=== PATIENT | female | born 1940 | race Caucasian/White ===

== ENCOUNTER → 2017-02-04 | Outpatient (CLI) | payer OTHER, MEDICARE ==
[~2017-02-04] MED LIST: ACET1TAB84 PO; ATV5 PO; FURO-85 PO; METO-551 PO; METO50TA16 PO; ROSU20TA PO; TRAM-10 PO; WARF2.5T8 PO; WARF5TAB90 PO
[2017-02-04 17:32] LABS: BASO % 0.8 %; BASO ABS # 0.05 K/uL (0-0.2); COMPLETE YES; EOS % 2.2 %; HEMATOCRIT 41.7 % (37-47); IG% 0.2 %; LYMPH % 23.1 %; LYMPH ABS # 1.47 K/uL (1.2-3.4); MEAN CELL VOLUME 89.9 fL (80-100); MEAN CORPUSCULAR HEMOGLOBIN 29.5 pg (25-34); MEAN CORPUSCULAR HGB CONC 32.9 g/dl (32-36); MEAN PLATELET VOLUME 9.9 fL (7.4-10.4); MONO % 5.3 %; NEUT % 68.4 %; PLATELET COUNT 184 K/uL (130-400); RED BLOOD COUNT 4.64 M/uL (4.2-5.4); WHITE BLOOD COUNT 6.37 K/uL (4.8-10.8)
[2017-02-04 17:42] LABS: ALB/GLOB RATIO 1.1 (0.9-2); ALT/SGPT 18 U/L (12-78); AST/SGOT 6 U/L (15-37); BLOOD UREA NITROGEN 16 mg/dl (7-18); BUN/CREATININE RATIO 17.7 (10-20); CALCIUM 8.5 mg/dl (8.5-10.1); CARBON DIOXIDE 31 mmol/L (21-32); CHLORIDE 105 mmol/L (98-107); CREATININE 0.91 mg/dl (0.60-1.20); GLUCOSE 81 mg/dl (70-99); SODIUM 142 mmol/L (136-145); TRIGLYCERIDES 96 mg/dl (0-150); VERY LOW DENSITY LIPOPROT CALC 19 mg/dl
[2017-02-04 17:50] LABS: ALKALINE PHOSPHATASE 62 U/L (45-117); CHOLESTEROL 157 mg/dl (0-200); CHOLESTEROL/HDL RATIO 2.8; HDL CHOLESTEROL 56 mg/dl; LDL CHOLESTEROL CALCULATED 82 mg/dl
== END | disposition home or self-care (01) ==
LOC: C.LABBFT 12:16
PROVIDERS: ATTEND Internal Medicine
DX: Z00.00 Encounter for general adult medical examination without abnormal findings (principal); I48.91 Unspecified atrial fibrillation; I10 Essential (primary) hypertension; E78.5 Hyperlipidemia, unspecified; M25.519 Pain in unspecified shoulder

== ENCOUNTER 2021-11-28 13:03 | Inpatient (IN) ==
[2021-11-28] MEDS ORDERED: ALBUT/IPRATROP 3MG/0.5MG NEB 3 ML VIAL NEB STA (13:24)
--- NOTE | 2021-11-28 13:43 | XRay Report ---
XR chest 1V portable CLINICAL HISTORY: hypoxia. Nonsmoker COMPARISON STUDY: 09/29/2011 TECHNIQUE: 1 view of the chest FINDINGS: Single frontal view of the chest demonstrates the heart to be moderately enlarged compared to previou s examination, there has been interval development of a right-sided pleural effusion and patchy alveo lar opacity at the right lung base. Findings are characteristic of early pneumonia versus atelectasis . PA and lateral radiographs would be helpful for further evaluation. The remainder of the lungs are clear. There is no evidence for left pleural effusion. There is no evidence for vascular congestion. There is no acute osseous pathology. IMPRESSION: Small right pleural effusion and alveolar opacity the right lung base representing either early pneumonia versus atelectasis. Follow-up is recommended. ACT 112: Negative or not required by law. Electronically signed by: Rizwan Rivera M.D. 11/28/2021 1:41 PM
[2021-11-28 13:54] LABS: Basophils # (auto) 0.06 K/uL (0-0.2); Basophils % (auto) 0.9 %; Eosinophils # (auto) 0.01 K/uL (0-0.5); Eosinophils % (auto) 0.2 %; Hematocrit (blood only) 49.7 % (37-47); Hemoglobin 16.3 g/dL (12.0-16.0); Immature Granulocytes # (auto) 0.01 K/uL (0.00-0.02); Immature Granulocytes % (auto) 0.2 %; Lymphocytes # (auto) 1.37 K/uL (1.2-3.4); Lymphocytes % (auto) 21.1 %; Mean Corpuscular Hemoglobin 30.5 pg (25-34); Mean Corpuscular Hgb Conc 32.8 g/dL (32-36); Mean Corpuscular Volume 92.9 fL (80-100); Mean Platelet Volume 9.9 fL (7.4-10.4); Monocytes # (auto) 1.06 K/uL (0.11-0.59); Monocytes % (auto) 16.3 %; Neutrophils # (auto) 3.99 K/uL (1.4-6.5); Neutrophils % (auto) 61.3 %; Platelet Count 189 K/uL (130-400); RDW Coefficient of Variation 14.6 % (11.5-14.5); RDW Standard Deviation 49.2 fL (36.4-46.3); Red Blood Count 5.35 M/uL (4.2-5.4)
[2021-11-28 14:12] LABS: INR 5.2 (0.9-1.1); Prothrombin Time 46.5 Seconds (9.0-12.0)
[2021-11-28] MEDS ORDERED: methylPREDNISolone 125 MG/2 ML VIAL IV STA (14:12)
[2021-11-28 14:59] LABS: Troponin I 0.07 ng/ml (0-0.04)
--- NOTE | 2021-11-28 15:02 | Emergency Department Note ---
ED Visit Note This patient was seen in concert with Dr. Abbott and we discussed and agreed upon the history, physical, assessment and plan. See attending's note for details. Resident Activity Tracking Resident Involvement: Resident Care Provided Care Provided: Adult ED
[2021-11-28 15:04] LABS: Influenza A virus by PCR Negative (Neg); Influenza B virus by PCR Negative (Neg); RSV by PCR Negative (Neg); SARS CoV2 RNA(COVID-19) InHosp NEGATIVE (Negative)
[2021-11-28] MEDS ORDERED: cefTRIAXone SODIUM 1,000 MG/50 ML BAG IV STA (15:06)
[2021-11-28] MEDS ORDERED: AZITHROMYCIN 250 MG TAB PO ONE (15:06)
--- NOTE | 2021-11-28 15:11 | Emergency Department Note ---
Impression & Plan Pneumonia, Hypoxia, Perioral cyanosis, Confusion, Elevated hemoglobin, Elevated hematocrit ED Provider Note NAME: LUCY CRUZ AGE: 81 SEX: F ARRIVES VIA: Ambulance INFORMANT: Patient, EMS, son ED PROVIDER(S): Samuel Abbott MD CHIEF COMPLAINT: Confusion PLAN: Disposition: Admit MEDICAL DECISION MAKING: The patient is a pleasant 81 yo F with a PMHx of afib on anticoagulation with warfarin and COPD who was brought in to the emergency department for altered mental status. She does not have any history of underlying dementia however earlier today her neighbors found her outside in the yard, wandering around aimlessly muttering to herself. The neighbor contacted her son Edouard, who called an EMS. History per Edouard: mother lives alone in private residence at baseline his mother is able to perform all ADLs and IADLS. However one week ago he spoke with her over the phone and she told him she saw his father lying in bed next to her (however Edouard states her is ). Edouard attributed this to her oxygen level being low this assumption was based on her underlying diagnosis of COPD. Later, when he went to visit her, he noticed her lips and fingertips appeared slightly blue. He told her to get her inhalers out and she expressed confusion/difficulty using them. Edouard wonders if she needs nighttime oxygen. Edouard lives in [place], [place] if his mother needs supervision/care, he would prefer she come live with him and his rather than be placed in a facility. Patient is a poor historian and when she is asked why she was outside in her nightgown she reports she was going across the street to use the phone as she cannot find hers which she attributes to the phone being under her bed due to the fact that kids were over at her house last night and put it there and she is unable to get it herself. However she is unable to say which "kids" and she then begins to describe all her children saying "4 are in the ground". On arrival the patient is in no acute distress, afebrile with stable vital signs. The patient's O2 saturation was initially 98% on room air though there was question of hypoxia to the 70s which is unclear whether or not it was a true waveform. Patient was treated with DuoNeb as she had scattered wheezes and poor air movement. Subsequently the patient's O2 saturation was in the 90s again. However, despite that patient's improved O2 saturation her perioral cyanosis persisted. EKG without overt acute ischemia. Chest x-ray demonstrates small right pleural effusion and right basilar opacity that is suspicious for pneumonia. WBC within normal limits. Platelets within normal limits. The patient's H/H is 16.3/49.7 which is increased from her baseline of 14/44. Suspect reactive related to COPD/hypoxemia since august vs hemoconcentration and could explain sean-oral cyanosis. INR supratherapeutic at 5.2 however no evidence of bleeding. Chemistry without metabolic acidosis. BUN is 26. BUN/creatinine> 20. Troponin 0.07 without prior values for comparison. BNP 1700, nonspecific, about prior values for comparison. COVID-19 PCR negative. Influenza PCR also negative. Given the patient's hypoxia which was severe by report prior to arrival and evidence of pneumonia on chest x-ray patient was ordered for antibiotics for CAP coverage. CT of the head was ordered given change in mental status from baseline and was negative for acute process. Atrophy and small vessel disease is noted. Methemoglobin ordered given perioral cyanosis (though there is no report of the patient taking any inciting medications). This was not elevated. Resident, Dr. Montreroso, discussed case with JOSELITO Hauser PAC, with Dr. Vazquez [facility] hospitalist, who will evaluate the patient for admission. This patient was managed with the assistance of resident, Dr. Monterroso, I discussed the case with the resident, examined the patient, and confirm the findings and plan as documented in this note. Triage Nursing notes reviewed and agree them. Prior medical records reviewed Vital Signs: reviewed and remarkable for hypoxia. Differential diagnosis: Infection, dehydration, metabolic abnormality, hypo/hyperglycemia, electrolyte disturbance, anemia, hypoxia, cardiac sources, intracerebral event, toxicologic, neurologic, as well as other pathologies. ER treatment provided: See below. Diagnostics interpreted by me: ECG: Atrial fibrillation with RVR, 107 bpm, no ectopy, no overt ST elevation or depression, QTC 456, QRS 90. Cardiac Monitoring: An order for continuous cardiac monitoring was placed and demonstrated atrial fibrillation with RVR, 107 bpm, no ectopy. Laboratory studies: See below Imaging studies: See below Consultation(s): JOSELITO Hauser PAC, with Dr. Vazquez [facility] hospitalist HPI: The patient is a pleasant 81 yo F with a PMHx of afib on anticoagulation with warfarin and COPD who was brought in to the emergency department for altered mental status. She does not have any history of underlying dementia however earlier today her neighbors found her outside in the yard, wandering around aimlessly muttering to herself. The neighbor contacted her son Edouard, who called an EMS. History per Edouard: mother lives alone in private residence at baseline his mother is able to perform all ADLs and IADLS. However one week ago he spoke with her over the phone and she told him she saw his father lying in bed next to her (however Edouard states her is ). Edouard attributed this to her oxygen level being low this assumption was based on her underlying diagnosis of COPD. Later, when he went to visit her, he noticed her lips and fingertips appeared slightly blue. He told her to get her inhalers out and she expressed confusion/difficulty using them. Edouard wonders if she needs nighttime oxygen. Edouard lives in [place], [place] if his mother needs supervision/care, he would prefer she come live with him and his rather than be placed in a facility. Patient is a poor historian and when she is asked why she was outside in her nightgown she reports she was going across the street to use the phone as she cannot find hers which she attributes to the phone being under her bed due to the fact that kids were over at her house last night and put it there and she is unable to get it herself. However she is unable to say which "kids" and she then begins to describe all her children saying "4 are in the ground". ROS: See above HPI for pertinent positives & negatives. A total of 10 systems reviewed and were otherwise negative. PAST MEDICAL HISTORY:See Below PAST SURGICAL HISTORY:See Below FAMILY HISTORY:See Below SOCIAL HISTORY:See Below HOME MEDICATIONS:See Below ALLERGIES:See Below VITALS:See Below PHYSICAL EXAMINATION: GENERAL: Awake, alert, fatigued-appearing, in no distress HENT: Normocephalic, atraumatic. Oropharynx dry mucous membranes with perioral cyanosis. EYES: Normal conjunctiva. Sclera non-icteric. NECK: Supple. No nuchal rigidity. FROM. No JVD. RESPIRATORY: Diminished with underlying wheeze and scattered wheezes with prolonged expiratory phase. CARDIAC: Tachycardic rate, irregular rhythm. Extremities warm and well perfused. Pulses equal. ABDOMEN: Soft, non-distended. No tenderness to palpation. No rebound or guarding. No masses. RECTAL: Deferred. MUSCULOSKELETAL: Chest examination reveals no tenderness. The back is symmet rical on inspection without obvious abnormality. There is no CVA tenderness to palpation. No joint edema. LOWER EXTREMITIES: Calves are equal size bilaterally and non-tender. No edema. No discoloration. NEURO: Alert to self and place but pleasantly confused to situation. No focal sensory or motor deficits noted. SKIN: No rash or jaundice noted. 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 Hyperlipidemia Hypertension Joint pain in the shoulder/clavicle region Osteoarthritis Permanent atrial fibrillation Surgical History History of cholecystectomy History of hysterectomy Family History Other Lung cancer Social History Smoking Status: Former smoker Tobacco Type: Cigarettes Age Started Using Tobacco: 14; Age Quit Using Tobacco: 59; packs per day: 1; Years Smoked: 45; Cigarettes Per Day: 20; Number of Years Since Quit: 20; Feels Safe at Home: Yes Allergies Allergies Allergy/AdvReac Type Severity Reaction Status Date / Time No Known Allergies Allergy Unknown Verified 11/28/21 16:26 Home Meds Home Medications Medication Instructions Recorded Confirmed furosemide 20 mg tablet 20 mg PO DAILY PRN 11/28/21 11/28/21 lorazepam 0.5 mg tablet 0.5 - 1 mg PO HS PRN 11/28/21 11/28/21 metoprolol tartrate 50 mg tablet 50 - 75 mg PO AMPM 11/28/21 11/28/21 rosuvastatin 20 mg tablet 10 mg PO [id number] 11/28/21 11/28/21 tiotropium 2.5 mcg-olodaterol 2.5 2 puff INHALATION QDL 11/28/21 11/28/21 mcg/actuation mist for inhalation (Stiolto Respimat) Previous Rx's Medication Instructions Recorded albuterol sulfate 90 mcg/actuation 2 puff INHALATION Q6H PRN #6.7 g 08/05/21 aerosol inhaler (ProAir HFA) warfarin 5 mg tablet 5 mg PO UD #100 tab 08/05/21 tramadol 50 mg tablet 50 mg PO QID PRN #120 tab 11/19/21 Results & Data (ED) Vital Signs Vital Signs - 24 hr 11/28/21 12:54 11/28/21 13:23 11/28/21 14:17 Temperature 36.8 C Temperature Source Oral Pulse Rate 72 104 H Pulse Rate from SpO2 Sensor 107 H Respiratory Rate 20 26 H Respiratory Effort / Characteristics Non-Labored Respiratory Depth Normal Respiratory Pattern Regular Blood Pressure 146/76 H Blood Pressure Mean 99 Pulse Oximetry 98 72 L 100 Oxygen Delivery Method Room Air Room Air Oxygen Flow Rate Sepsis Recent Fever Within 48 Hours No Sepsis New/Unexplained Change in Mental Status No Sepsis Action Taken by Nursing No Action Required 11/28/21 14:18 11/28/21 14:20 11/28/21 14:30 Temperature Temperature Source Pulse Rate 106 H 103 H 102 H Pulse Rate from SpO2 Sensor 102 H 104 H Respiratory Rate 25 H 17 17 Respiratory Effort / Characteristics Respiratory Depth Respiratory Pattern Blood Pressure 176/105 H Blood Pressure Mean 128 Pulse Oximetry 93 93 Oxygen Delivery Method Oxygen Flow Rate Sepsis Recent Fever Within 48 Hours Sepsis New/Unexplained Change in Mental Status Sepsis Action Taken by Nursing 11/28/21 14:40 11/28/21 14:50 11/28/21 15:00 Temperature Temperature Source Pulse Rate 101 H 102 H Pulse Rate from SpO2 Sensor 114 H Respiratory Rate 21 29 H Respiratory Effort / Characteristics Respiratory Depth Respiratory Pattern Blood Pressure Blood Pressure Mean Pulse Oximetry 94 87 L Oxygen Delivery Method Room Air Oxygen Flow Rate Sepsis Recent Fever Within 48 Hours Sepsis New/Unexplained Change in Mental Status Sepsis Action Taken by Nursing 11/28/21 15:15 Temperature Temperature Source Pulse Rate Pulse Rate from SpO2 Sensor Respiratory Rate Respiratory Effort / Characteristics Respiratory Depth Respiratory Pattern Blood Pressure Blood Pressure Mean Pulse Oximetry 96 Oxygen Delivery Method Nasal Cannula Oxygen Flow Rate 3 Sepsis Recent Fever Within 48 Hours Sepsis New/Unexplained Change in Mental Status Sepsis Action Taken by Nursing Laboratory Data Attestation: I reviewed the patient's lab results. Result diagrams: 11/28/21 13:43 11/28/21 13:43 Lab Results 11/28/21 11/28/21 11/28/21 Range/Units 13:43 13:43 13:43 WBC 6.50 (4.8-10.8) K/uL RBC 5.35 (4.2-5.4) M/uL Hgb 16.3 H (12.0-16.0) g/dL Hct 49.7 H (37-47) % MCV 92.9 (80-100) fL MCH 30.5 (25-34) pg MCHC 32.8 (32-36) g/dL RDW Std Deviation 49.2 H (36.4-46.3) fL RDW Coeff of Severino 14.6 H (11.5-14.5) % Plt Count 189 (130-400) K/uL MPV 9.9 (7.4-10.4) fL Immature Gran % (Auto) 0.2 % Neut % (Auto) 61.3 % Lymph % (Auto) 21.1 % [place] % (Auto) 16.3 % Eos % (Auto) 0.2 % Baso % (Auto) 0.9 % Neut # (Auto) 3.99 (1.4-6.5) K/uL Lymph # (Auto) 1.37 (1.2-3.4) K/uL [place] # (Auto) 1.06 H (0.11-0.59) K/uL Eos # (Auto) 0.01 (0-0.5) K/uL Baso # (Auto) 0.06 (0-0.2) K/uL Immature Gran # (Auto) 0.01 (0.00-0.02) K/uL PT 46.5 H (9.0-12.0) Seconds INR 5.2 H (0.9-1.1) Methemoglobin (0.0-1.5) % Sodium 137 (136-145) mmol/L Potassium 3.7 (3.5-5.1) mmol/L Chloride 98 (98-107) mmol/L Carbon Dioxide 28 (21-32) mmol/L Anion Gap 11 (3-11) BUN 26 H (6-23) mg/dl Creatinine 1.12 (0.6-1.2) mg/dl Est Cr Clr Drug Dosing Not Reportable Est GFR ( Amer) 53.0 ml/min Est GFR (Non-Af Amer) 45.7 ml/min BUN/Creatinine Ratio 23.2 H (10-20) Glucose 101 H (70-99) mg/dl Calcium 9.2 (8.5-10.1) mg/dl Total Bilirubin 2.9 H (0.2-1.0) mg/dl AST 223 H (13-39) U/L ALT 211 H (7-52) U/L Alkaline Phosphatase 102 (34-104) U/L Troponin I 0.07 H* (0-0.04) ng/ml B-Natriuretic Peptide (0-100) pg/ml Total Protein 6.5 (6.0-8.3) gm/dl Albumin 4.0 (3.4-5.0) gm/dl Globulin 2.5 (2.5-4.0) gm/dl Albumin/Globulin Ratio 1.6 (0.9-2) SARS-CoV-2 (PCR) (Negative) Influenza Type A (PCR) (Neg) Influenza Type B (PCR) (Neg) RSV (RT-PCR) (Neg) 11/28/21 11/28/21 11/28/21 Range/Units 14:04 14:14 15:27 WBC (4.8-10.8) K/uL RBC (4.2-5.4) M/uL Hgb (12.0-16.0) g/dL Hct (37-47) % MCV (80-100) fL MCH (25-34) pg MCHC (32-36) g/dL RDW Std Deviation (36.4-46.3) fL RDW Coeff of Severino (11.5-14.5) % Plt Count (130-400) K/uL MPV (7.4-10.4) fL Immature Gran % (Auto) % Neut % (Auto) % Lymph % (Auto) % [place] % (Auto) % Eos % (Auto) % Baso % (Auto) % Neut # (Auto) (1.4-6.5) K/uL Lymph # (Auto) (1.2-3.4) K/uL [place] # (Auto) (0.11-0.59) K/uL Eos # (Auto) (0-0.5) K/uL Baso # (Auto) (0-0.2) K/uL Immature Gran # (Auto) (0.00-0.02) K/uL PT (9.0-12.0) Seconds INR (0.9-1.1) Methemoglobin 1.4 (0.0-1.5) % Sodium (136-145) mmol/L Potassium (3.5-5.1) mmol/L Chloride (98-107) mmol/L Carbon Dioxide (21-32) mmol/L Anion Gap (3-11) BUN (6-23) mg/dl Creatinine (0.6-1.2) mg/dl Est Cr Clr Drug Dosing Est GFR ( Amer) ml/min Est GFR (Non-Af Amer) ml/min BUN/Creatinine Ratio (10-20) Glucose (70-99) mg/dl Calcium (8.5-10.1) mg/dl Total Bilirubin (0.2-1.0) mg/dl AST (13-39) U/L ALT (7-52) U/L Alkaline Phosphatase (34-104) U/L Troponin I (0-0.04) ng/ml B-Natriuretic Peptide 1726 H (0-100) pg/ml Total Protein (6.0-8.3) gm/dl Albumin (3.4-5.0) gm/dl Globulin (2.5-4.0) gm/dl Albumin/Globulin Ratio (0.9-2) SARS-CoV-2 (PCR) NEGATIVE (Negative) Influenza Type A (PCR) Negative (Neg) Influenza Type B (PCR) Negative (Neg) RSV (RT-PCR) Negative (Neg) Administered Medications Albuterol (Albut/Ipratrop 3mg/0.5mg Neb 3 Ml Vial) 3 ml NEB Q4R TEDDY; Protocol Stop: 12/28/21 19:33 Last Admin: 11/28/21 20:55 Dose: 3 ml Documented by: [id number] Diltiazem HCl (Diltiazem Hcl 120 Mg Capcr) 120 mg PO QAM [facility] Stop: 12/28/21 19:33 Last Admin: 11/28/21 22:33 Dose: 120 mg Documented by: [id number] Methylprednisolone 60 mg/ (Syringe) 0.96 mls @ 1.5 mls/min IV Q12H [facility] Stop: 12/29/21 00:00 Last Admin: 11/28/21 23:04 Dose: 1.5 mls/min Documented by: [id number] Lorazepam (Lorazepam 0.5 Mg Tab) 0.25 - 0.5 mg PO HS PRN PRN Reason: anxiety Stop: 12/28/21 19:33 Last Admin: 11/28/21 20:57 Dose: 0.5 mg Documented by: [id number] Metoprolol Tartrate (Metoprolol Tartrate 50 Mg Tab) 50 mg PO HS TEDDY Stop: 12/28/21 20:59 Last Admin: 11/28/21 20:57 Dose: 50 mg Documented by: [id number] Tramadol HCl (Tramadol Hcl 50 Mg Tablet) 50 mg PO QID PRN PRN Reason: pain Stop: 12/28/21 19:33 Last Admin: 11/28/21 20:56 Dose: 50 mg Documented by: [id number] Discontinued Medications Albuterol (Albut/Ipratrop 3mg/0.5mg Neb 3 Ml Vial) 3 ml NEB NOW STA; Protocol Stop: 11/28/21 13:25 Last Admin: 11/28/21 14:19 Dose: 3 ml Documented by: [id number] Azithromycin (Azithromycin 250 Mg Tab) 500 mg PO NOW ONE Stop: 11/28/21 15:07 Last Admin: 11/28/21 15:53 Dose: 500 mg Documented by: [id number] Furosemide (Furosemide 40 Mg/4 Ml Vial) 60 mg IV NOW ONE Stop: 11/28/21 15:33 Last Admin: 11/28/21 15:54 Dose: 60 mg Documented by: [id number] Ceftriaxone Sodium (Rocephin) 1,000 mg in 50 mls @ 100 mls/hr IV NOW STA Stop: 11/28/21 15:35 Last Infusion: 11/28/21 17:03 Dose: 0 mls/hr Documented by: [id number] Admin: 11/28/21 15:54 Dose: 100 mls/hr Documented by: [id number] Methylprednisolone (Methylprednisolone 125 Mg/2 Ml Vial) 125 mg IV NOW STA Stop: 11/28/21 14:13 Last Admin: 11/28/21 14:21 Dose: 125 mg Documented by: [id number] Miscellaneous (Patient's Height And/Or Weight Needed) 1 ea N/A Q2H TEDDY Stop: 12/28/21 19:59 Last Admin: 11/28/21 20:57 Dose: 1 ea Documented by: [id number] Imaging Data Radiologist's Impression: Chest X-Ray 11/28/21 13:24 XR chest 1V portable CLINICAL HISTORY: hypoxia. Nonsmoker COMPARISON STUDY: 09/29/2011 TECHNIQUE: 1 view of the chest FINDINGS: Single frontal view of the chest demonstrates the heart to be moderately enlarged compared to previous examination, there has been interval development of a right-sided pleural effusion and patchy alveolar opacity at the right lung base. Findings are characteristic of early pneumonia versus atelectasis. PA and lateral radiographs would be helpful for further evaluation. The remainder of the lungs are clear. There is no evidence for left pleural effusion. There is no evidence for vascular congestion. There is no acute osseous pathology. IMPRESSION: Small right pleural effusion and alveolar opacity the right lung base representing either early pneumonia versus atelectasis. Follow-up is recommended. ACT 112: Negative or not required by law. Electronically signed by: Rizwan Rivera M.D. 11/28/2021 1:[address] 11/28/21 14:33 CT head/brain wo con CLINICAL HISTORY: Altered mental status COMPARISON STUDY: No previous studies for comparison. CT DOSE: 1547.15 mGy.cm TECHNIQUE: Standard CT of the Brain was performed without IV contrast. A dose lowering technique was utilized adhering to the principles of ALARA. FINDINGS: Extraaxial space: There is no evidence for subdural hematoma. There are no e xtra-axial fluid collections. Ventricles and cisterns: The ventricles are mildly dilated bilaterally. There is no evidence for midline shift or mass effect. Parenchyma: There is no subarachnoid or intraparenchymal hemorrhage. There is no evidence for an acute infarct or cerebral edema. There is mild cerebral cortical atrophy and decreased attenuation in the periventricular white matter representing remote small vessel disease. There are no gross mass lesions. Osseous structures: There is no evidence for an acute fracture. The visualized paranasal sinuses are clear. The mastoid air cells are clear bilaterally. Soft tissues: There is no evidence for focal soft tissue swelling. IMPRESSION: No acute intracerebral pathology. Mild cerebral cortical atrophy and remote small vessel disease. ACT 112: Negative or not required by law. Electronically signed by: Rizwan Rivera M.D. 11/28/2021 5:23 PM Discharge Plan Visit Data Chief Complaint: Illness Stated Complaint: ILLNESS ED Provider: Samuel Abbott ED Midlevel Provider: Alta Monterroso Discharge Problem: Pneumonia, Hypoxia, Perioral cyanosis, Confusion, Elevated hemoglobin, Elevated hematocrit Patient Disposition: Admitted As Inpatient Discharge Instructions Interventions: ED Discharge Assessment Last Done: 11/28/21 19:34 Discharge Problem: Pneumonia Qualifiers: Pneumonia type: due to unspecified organism Laterality: right Lung location: lower lobe of lung Qualified Code(s): J18.9 - Pneumonia, unspecified organism
[2021-11-28] MEDS ORDERED: FUROSEMIDE 40 MG/4 ML VIAL IV ONE (15:32)
[2021-11-28 15:58] LABS: Alanine Aminotransferase 211 U/L (7-52); Albumin Globulin Ratio 1.6 (0.9-2); Alkaline Phosphatase 102 U/L (34-104); Anion Gap 11 (3-11); Aspartate Aminotransferase 223 U/L (13-39); BUN Creatinine Ratio 23.2 (10-20); Bilirubin,Total 2.9 mg/dl (0.2-1.0); Blood Urea Nitrogen 26 mg/dl (6-23); Calcium 9.2 mg/dl (8.5-10.1); Carbon Dioxide 28 mmol/L (21-32); Chloride 98 mmol/L (98-107); Est GFR (Non-African American) 45.7 ml/min; Globulin 2.5 gm/dl (2.5-4.0); Glucose 101 mg/dl (70-99); Potassium 3.7 mmol/L (3.5-5.1); Sodium 137 mmol/L (136-145); Total Protein 6.5 gm/dl (6.0-8.3)
--- NOTE | 2021-11-28 16:17 | History & Physical Report ---
Date of Service November 28, 2021 Assessment & Plan (1) Altered mental status: (2) Hypoxia: (3) COPD exacerbation: Plan: Mrs. Castro is an 81 year old female with a history of Permanent Atrial Fibrillation (currently with elevated V rate), COPD/Emphysema, Hypertension, Hyperlipidemia, Anxiety, Osteoarthritis, and CKD who presented acutely to [facility] ER today via ambulance with altered mental status. Apparently, she was found earlier today walking around in the yard mumbling to herself. She states that she was looking for her phone that her kicked under their bed. She went to her neighbor's house to borrow her phone -- and her neighbor real ized that she was confused and not her usual self. Neighbor contacted her son Edouard who lives in [place]. He apparently called 911 and the ambulance came for her. Patient does not have any history of underlying dementia, and her son confirms that she lives independently and is able to do all of her usual activities of daily living and IADLs when she is at baseline without difficulty. However, 1 week ago Edouard spoke to his mother over the phone and she told him she saw his "father lying in bed next to me" (her is ). her son the admit that perhaps her oxygen levels were low because of her underlying diagnosis of COPD/emphysema. Edouard came over to visit her and noticed that her finger tips and lips appear to be slightly blue. He told her to get out her inhalers but s he seemed confused when it came to using them. Patient does feel better since she arrived to the emergency room. She received a dose of Rocephin, azithromycin, steroids, and got a nebulizer treatment. Patient does admit to some mild exertional dyspnea recently (over the past 4 or 5 days she estimats) but has not had any significant cough or sputum production. She denies any fevers, chills, headache, stiff neck, recent diarrhea, nausea, vomiting, or any chest discomfort. She has not had any orthopnea or PND. She does not weigh herself routinely -- so she is uncertain if she has had any r ecent weight changes. She does admit to leg edema from time to time, and she is edematous now. Patient specifically denies any exertional chest pain, heaviness, tightness, pressure, or discomfort. She has not had any neck, jaw, back, or arm pain. She denies any symptoms attributable to her atrial fibrillation despite elevated heart rate. In the emergency room she is noted to be in atrial fibrillation with heart rates in the 100-120 bpm range, she was hypoxic with oxygen saturations in the 70s and 80s prior to getting supplemental oxygen, tachypneic, and she has an abnormal chest x-ray showing a small pleural effusion, opacification in the right base, and marked cardiomegaly. Her initial troponin I level is 0.07 ng/mL, and her proBNP is elevated at 1726 pg/ml. Additionally, her TSH is elevated at 5.25uIU/mL. Her EKG shows atrial fibrillation with a moderately elevated ventricular response rate, right axis deviation, and an RSR' complex in V1 without widening of the QRS complex. No acute ST or T-wave abnormalities. Question if she may have a component of CHF based on cardiomegaly and A-Fib with RVR, elevated pro-BNP, hepatic congestion contributing to supratherapeutic INR. Recommend the followin. Admit to a monitored bed. 2. Continuous pulse oximetry. 3. Continue supplemental oxygen to maintain O2 saturation above 92%. 4. Continue IV Rocephin and IV Azithromycin for suspected bronchitis / possible pneumonia. 5. IV Lasix 60 mg x 1 dose in the ER. 6. IV Methylprednisolone every 12 hours. 7. Continue usual home inhalers. 8. DuoNeb nebulizers. 9. Incentive spirometry. 10. CT scan the chest, no contrast. (4) Permanent atrial fibrillation with RVR: Plan: Permanent A-Fib for years, currently with RVR. This may be due to her acute illness. 1. Hold Coumadin as her INR is supratherapeutic. Resume Coumadin when INR drops below 2.5. 2. Continue Lopressor 50 mg every morning, 75 mg each night. 3. With her elevated heart rate and hypertension, recommend adding oral Diltiazem CD 120 mg daily. 4. Monitor daily INRs. (5) Supratherapeutic INR: Plan: -- Currently on hold due to being supratherapeutic. -- Manage as outlined above. (6) Elevated troponin I level: Plan: Initial Troponin I is 0.07 ng/ml. She does not describe any anginal symptoms. Likely myocardial O2 supply/demand mismatch related to acute illness, hypoxia, tachycardia, etc.. -- Trend Troponin I levels. -- Check Echocardiogram. (7) Hypertension: Plan: BP is elevated in the ER. -- Add oral Diltiazem CD 120 mg daily for both hypertension and elevated ventricular response rate. -- Continue Lopressor 50 mg every morning, 75 mg each night. (8) Hyperlipidemia: Plan: - Continue Crestor 10 mg 3 times a week. (9) Elevated TSH: Plan: TSH on admission is 5.25 uIU/ml. -- She likely benefit by starting on thyroid supplementation. History of Present Illness Chief Complaint: -- Altered Mental Status. -- Hypoxia. -- Cardiomegaly. -- Bronchitis. Primary Care Provider: Neeru Cummings MD Mrs. Castro is an 81 year old female with a history of Permanent Atrial Fibrillation (currently with elevated V rate), COPD/Emphysema, Hypertension, Hyperlipidemia, Anxiety, Osteoarthritis, and CKD who presented acutely to [facility] E R today via ambulance with altered mental status. Apparently, she was found earlier today walking around in the yard mumbling to herself. She states that she was looking for her phone that her kicked under their bed. She went to her neighbor's house to borrow her phone -- and her neighbor realized that she was confused and not her usual self. Neighbor contacted her son Edouard who lives in [place]. He apparently called 911 and the ambulance came for her. Patient does not have any history of underlying dementia, and her son confirms that she lives independently and is able to do all of her usual activities of daily living and IADLs when she is at baseline without difficulty. However, 1 week ago Edouard spoke to his mother over the phone and she told him she saw his " father lying in bed next to me" (her is ). her son the admit that perhaps her oxygen levels were low because of her underlying diagnosis of COPD/emphysema. Edouard came over to visit her and noticed that her finger tips and lips appear to be slightly blue. He told her to get out her inhalers but she seemed confused when it came to using them. Patient does feel better since she arrived to the emergency room. She received a dose of Rocephin, azithromycin, steroids, and got a nebulizer treatment. Patient does admit to some mild exertional dyspnea recently (over the past 4 or 5 days she estimats) but has not had any significant cough or sputum production. She denies any fevers, chills, headache, stiff neck, recent diarrhea, nausea, vomiting, or any chest discomfort. She has not had any orthopnea or PND. She does not weigh herself routinely -- so she is uncertain if she has had any recent weight changes. She does admit to leg edema from time to time, and she is edematous now. Patient specifically denies any exertional chest pain, heaviness, tightness, pressure, or discomfort. She has not had any neck, jaw, back, or arm pain. She denies any symptoms attributable to her atrial fibrillation despite elevated heart rate. Edouard lives in [place], [place] if his mother needs supervision/care, he would prefer she come live with him and his rather than be placed in a facility. Allergies Allergy/AdvReac Type Severity Reaction Status Date / Time No Known Allergies Allergy Unknown Verified 11/28/21 16:26 Home Medications Medication Instructions Recorded Confirmed Type albuterol sulfate 90 mcg/actuation 2 puff INHALATION Q6H PRN #6.7 g 08/05/21 Rx aerosol inhaler (ProAir HFA) warfarin 5 mg tablet 5 mg PO UD #100 tab 08/05/21 Rx tramadol 50 mg tablet 50 mg PO QID PRN #120 tab 11/19/21 Rx furosemide 20 mg tablet 20 mg PO DAILY PRN 11/28/21 11/28/21 History lorazepam 0.5 mg tablet 0.5 - 1 mg PO HS PRN 11/28/21 11/28/21 History metoprolol tartrate 50 mg tablet 50 - 75 mg PO AMPM 11/28/21 11/28/21 History rosuvastatin 20 mg tablet 10 mg PO 3XWK 11/28/21 11/28/21 History tiotropium 2.5 mcg-olodaterol 2.5 2 puff INHALATION QDL 11/28/21 11/28/21 History mcg/actuation mist for inhalation (Stiolto Respimat) Past Med/Surg History Medical History Anticoagulated on Coumadin Anxiety COPD (chronic obstructive pulmonary disease) with emphysema Herpes labialis Hyperlipidemia Hypertension Joint pain in the shoulder/clavicle region Osteoarthritis Permanent atrial fibrillation Surgical History History of cholecystectomy History of hysterectomy Family History Other Lung cancer Social History Smoking Status: Former smoker Tobacco Type: Cigarettes Age Started Using Tobacco: 14; Age Quit Using Tobacco: 59; packs per day: 1; Years Smoked: 45; Cigarettes Per Day: 20; Number of Years Since Quit: 20; Feels Safe at Home: Yes Review of Systems Review of Systems: 10 point review of systems was otherwise completed and is negative with the exception of what is mentioned in the HPI. Physical Exam Physical Exam: SpO2 87% to 92%, she desaturates when she talks. RR 24. GENERAL: Patient is sitting in her ER litter and does not appear acutely distressed. HEENT: Head is atraumatic, normocephalic. EOM's intact. Sclerae anicteric. Facies symmetric. Perioral cyanosis is present. NECK: No JVD. JVP is slightly elevated Carotid upstrokes are + 2 bilaterally without obvious bruits. CHEST/LUNGS: Diminished breath sounds throughout, with occasional crackles in the bases. No wheezes currently.. CVS: S1 and S2 are irregularly irregular, tachycardic with with a grade 1/6 systolic murmur left sternal border. No obvious diastolic murmurs. No gallops or rubs. PMI is laterally displaced. No lifts, heaves, or thrills. No abdominal aortic or renal bruits. ABDOMINAL EXAM: Bowel sounds are present. No masses, organomegaly, or tenderness. EXTREMITIES: No clubbing. Finger tips appear cyanotic. +1 pretibial edema bilaterally. Intact radial pulses bilaterally. Pigmentation changes consistent with chronic venous insufficiency are present. No open areas or ulcerations. NEUROLOGIC EXAM: Patient is awake, alert, and interactive. Pleasant and cooperative. Answers questions appropriately. Speech is clear. Follows commands. Gait pattern was not assessed. Results & Data Results & Data ([facility]) Vital Signs (Past 12 Hours) Vital Signs Temp Pulse Resp BP Pulse Ox 11/28/21 14:50 102 H 29 H 94 11/28/21 14:40 101 H 21 11/28/21 14:30 102 H 17 11/28/21 14:20 103 H 17 93 11/28/21 14:18 106 H 25 H 176/105 H 93 11/28/21 14:17 104 H 26 H 100 11/28/21 13:23 72 L 11/28/21 12:54 36.8 C 72 20 146/76 H 98 Laboratory Results Laboratory Results - last 24 hr 11/28/21 11/28/21 11/28/21 13:43 13:43 13:43 WBC 6.50 RBC 5.35 Hgb 16.3 H Hct 49.7 H MCV 92.9 MCH 30.5 MCHC 32.8 RDW Std Deviation 49.2 H RDW Coeff of Severino 14.6 H Plt Count 189 MPV 9.9 Immature Gran % (Auto) 0.2 Neut % (Auto) 61.3 Lymph % (Auto) 21.1 Arthur % (Auto) 16.3 Eos % (Auto) 0.2 Baso % (Auto) 0.9 Neut # (Auto) 3.99 Lymph # (Auto) 1.37 Arthur # (Auto) 1.06 H Eos # (Auto) 0.01 Baso # (Auto) 0.06 Immature Gran # (Auto) 0.01 PT 46.5 H INR 5.2 H Methemoglobin Sodium 137 Potassium 3.7 Chloride 98 Carbon Dioxide 28 Anion Gap 11 BUN 26 H Creatinine 1.12 Est Cr Clr Drug Dosing Not Reportable Est GFR ( Amer) 53.0 Est GFR (Non-Af Amer) 45.7 BUN/Creatinine Ratio 23.2 H Glucose 101 H Calcium 9.2 Total Bilirubin 2.9 H AST 223 H ALT 211 H Alkaline Phosphatase 102 Troponin I 0.07 H* B-Natriuretic Peptide Total Protein 6.5 Albumin 4.0 Globulin 2.5 Albumin/Globulin Ratio 1.6 SARS-CoV-2 (PCR) Influenza Type A (PCR) Influenza Type B (PCR) RSV (RT-PCR) 11/28/21 11/28/21 11/28/21 14:04 14:14 15:27 WBC RBC Hgb Hct MCV MCH MCHC RDW Std Deviation RDW Coeff of Severino Plt Count MPV Immature Gran % (Auto) Neut % (Auto) Lymph % (Auto) Arthur % (Auto) Eos % (Auto) Baso % (Auto) Neut # (Auto) Lymph # (Auto) Arthur # (Auto) Eos # (Auto) Baso # (Auto) Immature Gran # (Auto) PT INR Methemoglobin 1.4 Sodium Potassium Chloride Carbon Dioxide Anion Gap BUN Creatinine Est Cr Clr Drug Dosing Est GFR ( Amer) Est GFR (Non-Af Amer) BUN/Creatinine Ratio Glucose Calcium Total Bilirubin AST ALT Alkaline Phosphatase Troponin I B-Natriuretic Peptide 1726 H Total Protein Albumin Globulin Albumin/Globulin Ratio SARS-CoV-2 (PCR) NEGATIVE Influenza Type A (PCR) Negative Influenza Type B (PCR) Negative RSV (RT-PCR) Negative Diagnostic Findings CXR 11/28/21: Single frontal view of the chest demonstrates the heart to be moderately enlarged compared to previous examination, there has been interval development of a right-sided pleural effusion and patchy alveolar opacity at the right lung base. Findings are characteristic of early pneumonia versus atelectasis. PA and lateral radiographs would be helpful for further evaluation. The remainder of the lungs are clear. There is no evidence for left pleural effusion. There is no evidence for vascular congestion. There is no acute osseous pathology. IMPRESSION: -- Small right pleural effusion and alveolar opacity the right lung base representing either early pneumonia versus atelectasis. -- Follow-up is recommended. CT SCAN CHEST without contrast is ordered. ECHOCARDIOGRAM is ordered. Medications Administered Medications albuterol sulfate 90 mcg/actuation aerosol inhaler (ProAir HFA) 2 puff INHALATION Q6H PRN #6.7 g 08/05/21 [Rx] warfarin 5 mg tablet 5 mg PO UD #100 tab 08/05/21 [Rx] tramadol 50 mg tablet 50 mg PO QID PRN #120 tab 11/19/21 [Rx] furosemide 20 mg tablet 20 mg PO DAILY PRN 11/28/21 [History Confirmed 11/28/21] lorazepam 0.5 mg tablet 0.5 - 1 mg PO HS PRN 11/28/21 [History Confirmed 11/28/21] metoprolol tartrate 50 mg tablet 50 - 75 mg PO AMPM 11/28/21 [History Confirmed 11/28/21] rosuvastatin 20 mg tablet 10 mg PO 3XWK 11/28/21 [History Confirmed 11/28/21] tiotropium 2.5 mcg-olodaterol 2.5 mcg/actuation mist for inhalation (Stiolto Respimat) 2 puff INHALATION QDL 11/28/21 [History Confirmed 11/28/21] Code Status & VTE Plan Code Status Full Code VTE Prophylaxis Plan VTE Prophylaxis will be ordered: Yes Supervising Physician Co-Signing Physician Notes Patient was seen and examined independently I discussed the case with Naseem JUAREZ I reviewed pertinent past medical social family history and also the plan of care and agree with the plan of care. Patient was a bit short of breath and slightly confused as she wandered to her neighbor's house to ask for some help. Her neighbor called her son who called an ambulance patient was brought to our facility she is found to be hypertensive tachycardic And abnormal chest x-ray positive or elevated troponin slightly without acute current of injury on her EKG with controlled atrial fibrillation. She is COVID-negative. Patient is extensive smoking history and likely has some bronchitis with COPD exacerbation or perhaps a slight bit of heart failure unknown whether systolic or diastolic. She will be observed in our facility we will give her some diuretic therapy steroids bronchodilators oral antibiotics for bronchitis evaluated echocardiogram and have PT OT evaluation to determine her fitness to return to home. Her son arrived in the room from [place] and states he is able to care for her pets and wants his mother to stay and be evaluated. Physical exam however shows her lungs to be with relatively normal breath sounds despite her abnormal chest x-ray she does have prolonged expiration consistent with COPD otherwise she is fairly nonfocal with exception of atrial fibrillation controlled ventricular rate listened by irregular heart rate with controlled pulse Any exceptions will be noted below PG Care Time/CCT Total # of Minutes Spent Total Time Spent with Patient: Total time spent is greater than 50% in coordination of care (as documented) at patient's floor/unit and/or counseling patient:40 Coding Level of Care Code 47590 Initial Inpt Care Lvl 3 Diagnoses Altered mental status R41.82 Hypoxia R09.02 COPD exacerbation J44.1 Permanent atrial fibrillation with RVR I48.21 Supratherapeutic INR R79.1 Elevated troponin I level R77.8 Hypertension I10 Hyperlipidemia E78.5 Elevated TSH R79.89 Time Spent (min) 66
--- NOTE | 2021-11-28 17:24 | CT Scan Report ---
CT head/brain wo con CLINICAL HISTORY: Altered mental status COMPARISON STUDY: No previous studies for comparison. CT DOSE: 1547.15 mGy.cm TECHNIQUE: Standard CT of the Brain was performed without IV contrast. A dose lowering technique was utilized adhering to the principles of ALARA. FINDINGS: Extraaxial space: There is no evidence for subdural hematoma. There are no extra-axial fluid collecti ons. Ventricles and cisterns: The ventricles are mildly dilated bilaterally. There is no evidence for mid line shift or mass effect. Parenchyma: There is no subarachnoid or intraparenchymal hemorrhage. There is no evidence for an acu te infarct or cerebral edema. There is mild cerebral cortical atrophy and decreased attenuation in th e periventricular white matter representing remote small vessel disease. There are no gross mass lesi ons. Osseous structures: There is no evidence for an acute fracture. The visualized paranasal sinuses are clear. The mastoid air cells are clear bilaterally. Soft tissues: There is no evidence for focal soft tissue swelling. IMPRESSION: No acute intracerebral pathology. Mild cerebral cortical atrophy and remote small vessel disease. ACT 112: Negative or not required by law. Electronically signed by: Rizwan Rivera M.D. 11/28/2021 5:23 PM
[2021-11-28 18:26] LABS: Appearance Urine Clear (Clear); Bacteria Urine Automated Negative (Negative); Bilirubin Urine Negative (Negative); Blood Urine 2+ (Negative); Cast Urine Automated 0 /lpf (0-5); Color Urine Yellow; Epithelial Cell Urine Auto 0-5 /lpf (0-5); Glucose Urine UA Negative (Negative); Ketones Urine Negative (Negative); Leukocyte Esterase Urine Negative (Negative); Nitrite Urine Negative (Negative); Protein Urine Negative (Negative); Specific Gravity Urine 1.007 (1.000-1.030); Urobilinogen Urine Negative (Negative)
[2021-11-28] MEDS ORDERED: MAGNESIUM HYDROXIDE SUSP 30 ML UDC PO PRN (19:34)
[2021-11-28] MEDS ORDERED: ALUMINUM/MAGNESIUM SUSP 30 ML UDC PO PRN (19:34)
[2021-11-28] MEDS ORDERED: ACETAMINOPHEN 325 MG TAB PO PRN (19:34)
[2021-11-28] MEDS ORDERED: ONDANSETRON INJ 2 MG/ML 2 ML VIAL IV PRN (19:34)
[2021-11-28] MEDS ORDERED: ZOLPIDEM TARTRATE 5 MG TAB PO PRN (19:34)
[2021-11-28] MEDS ORDERED: NITROGLYCERIN SL 0.4 MG/TAB TAB SL PRN (19:34)
[2021-11-28] MEDS ORDERED: POLYETHYLENE (MIRALAX) 17 GM PACK PO PRN (19:34)
[2021-11-28] MEDS ORDERED: PATIENT'S HEIGHT AND/OR WEIGHT NEEDED SCH (20:00)
[2021-11-28] MEDS ORDERED: ALBUTEROL HFA 8 GM INHALER INH PRN (20:02)
--- NOTE | 2021-11-28 20:21 | Electrocardiogram Report ---
Test Reason : Blood Pressure : / mmHG Vent. Rate : 107 BPM Atrial Rate : 113 BPM P-R Int : 000 ms QRS Dur : 090 ms QT Int : 342 ms P-R-T Axes : 000 122 134 degrees QTc Int : 456 ms Atrial fibrillation with rapid ventricular response Right axis deviation RSR' or QR pattern in V1 suggests right ventricular conduction delay Abnormal ECG When compared with ECG of 26-SEP-2011 13:38, RSR' pattern in V1 is now Present Confirmed by Jarrod Bailon ([id number]) on 11/28/2021 8:20:51 PM Referred By: REFERRED SELF Confirmed By:Jarrod Bailon
[2021-11-28] MEDS: ALBUT/IPRATROP 3MG/0.5MG NEB 3 ML VIAL NEB SCH (20:55)
[2021-11-28] MEDS: traMADol HCL 50 MG TABLET PO PRN (20:56)
[2021-11-28] MEDS: METOPROLOL TARTRATE 50 MG TAB PO SCH (20:57)
[2021-11-28] MEDS: LORazepam 0.5 MG TAB PO PRN (20:57)
--- NOTE | 2021-11-28 20:58 | CT Scan Report ---
CT chest diagnostic wo con CLINICAL HISTORY: Abnormal CXR, hypoxia . Evaluate for early right basilar pneumonia. COMPARISON STUDY: Portable chest from 11/28/2019 CT DOSE: 282.98 mGy.cm TECHNIQUE: Standard CT of the Chest was performed without IV contrast. A dose lowering technique was utilized adhering to the principles of ALARA. FINDINGS: Airway: The airway is clear. No endobronchial lesion is identified. Lungs and pleural: There is moderate centrilobular emphysematous changes present particularly involvi ng the upper lobes bilaterally. There is a small to moderate size right pleural effusion with jany sive atelectasis at the right lung base. There is also a very small left pleural effusion with left basilar atelectasis. Lungs are otherwise c lear of acute alveolar opacities, air bronchograms or pulmonary nodules. Mediastinum: There is no evidence for pathologic adenopathy on these limited noncontrast images. The heart size is mildly enlarged. There is mild coronary artery calcification. The thoracic aorta is wit hin normal limits. There is a small to moderate-sized pericardial effusion present. Upper abdomen: The adrenal glands are normal bilaterally. Osseous structures: There is no acute osseous pathology. IMPRESSION: 1. Compared to standard radiograph, there is a small to moderate-sized right pleural effusion with co mpressive atelectasis at the right lung base. No confluent alveolar opacity or air bronchograms. 2. This also small left pleural effusion with left basilar atelectasis. 3. Moderate centrilobular emphysematous changes particularly involving the upper lobes bilaterally. 4. Cardiomegaly with small to moderate-sized pericardial effusion. 5. Mild coronary artery calcification. ACT 112: Negative or not required by law. Electronically signed by: Rizwan Rivera M.D. 11/28/2021 8:56 PM
[2021-11-28] MEDS ORDERED: methylPREDNISolone 125 MG/2 ML VIAL IV SCH (21:00)
[2021-11-28] MEDS: dilTIAZem HCL 120 MG CAPCR PO SCH (22:33)
[2021-11-28] MEDS: methylPREDNISolone 60 MG in SYRINGE 0 ML IV SCH (23:04)
[2021-11-28] MEDS ORDERED: LORazepam 0.5 MG TAB PO STA (23:55)
[2021-11-29] MEDS: ALBUT/IPRATROP 3MG/0.5MG NEB 3 ML VIAL NEB SCH ×3 (00:43→07:08)
[2021-11-29] MEDS: METOPROLOL TARTRATE 50 MG TAB PO SCH ×2 (08:16→21:33)
[2021-11-29] MEDS: dilTIAZem HCL 120 MG CAPCR PO SCH (08:16)
[2021-11-29] MEDS: UMECLIDINIUM/VILANTEROL 62.5/25MCG 7 PUFFS/INHALER INH SCH (08:16)
[2021-11-29] MEDS ORDERED: NON-FORMULARY MEDICATION (Tiotropium-Olodaterol [Stiolto Respimat] 2.5-2.5 mcg/actuation m INH SCH (09:00)
[2021-11-29] MEDS ORDERED: FUROSEMIDE 20 MG TAB PO SCH (09:00)
[2021-11-29 09:24] LABS: Basophils # (auto) 0.01 K/uL (0-0.2); Basophils % (auto) 0.1 %; Immature Granulocytes # (auto) 0.01 K/uL (0.00-0.02); Immature Granulocytes % (auto) 0.1 %; Lymphocytes # (auto) 0.57 K/uL (1.2-3.4); Lymphocytes % (auto) 7.5 %; Mean Corpuscular Hemoglobin 30.6 pg (25-34); Mean Corpuscular Hgb Conc 33.3 g/dL (32-36); Mean Corpuscular Volume 91.7 fL (80-100); Mean Platelet Volume 10.5 fL (7.4-10.4); Monocytes # (auto) 0.22 K/uL (0.11-0.59); Monocytes % (auto) 2.9 %; Neutrophils # (auto) 6.78 K/uL (1.4-6.5); Neutrophils % (auto) 89.4 %; Platelet Count 201 K/uL (130-400); RDW Coefficient of Variation 14.5 % (11.5-14.5); RDW Standard Deviation 48.6 fL (36.4-46.3); Red Blood Count 5.56 M/uL (4.2-5.4); White Blood Count 7.59 K/uL (4.8-10.8)
[2021-11-29 09:40] LABS: INR 4.3 (0.9-1.1); Prothrombin Time 39.2 Seconds (9.0-12.0)
--- NOTE | 2021-11-29 09:47 | Electrocardiogram Report ---
Test Reason : Blood Pressure : / mmHG Vent. Rate : 084 BPM Atrial Rate : 150 BPM P-R Int : 000 ms QRS Dur : 106 ms QT Int : 414 ms P-R-T Axes : 000 114 116 degrees QTc Int : 489 ms Atrial fibrillation Incomplete right bundle branch block Left posterior fascicular block Nonspecific T wave abnormality Abnormal ECG When compared with ECG of 28-NOV-2021 13:31, Nonspecific T wave abnormality is slightly worse Confirmed by Eleazar Salguero ([id number]) on 11/29/2021 9:46:53 AM Referred By: REFERRED SELF Confirmed By:Eleazar Salguero
[2021-11-29] MEDS ORDERED: ALBUT/IPRATROP 3MG/0.5MG NEB 3 ML VIAL NEB PRN (09:48)
[2021-11-29 09:50] LABS: Calcium 9.4 mg/dl (8.5-10.1); Creatinine Clr Calc Pharmacy 49.8 ml/min; Est GFR (African American) 63.8 ml/min; Est GFR (Non-African American) 55.1 ml/min; Potassium 3.4 mmol/L (3.5-5.1)
[2021-11-29] MEDS: methylPREDNISolone 60 MG in SYRINGE 0 ML IV SCH (13:14)
--- NOTE | 2021-11-29 14:08 | Hospitalist Progress Note ---
Date of Service November 29, 2021 Assessment & Plan (1) COPD exacerbation: Plan: On admission. Presently breathing much more comfortably. - Continue steroids and abx - Continue home Stiolto (or formulary equivalent) - Continue DuoNebs PRN (2) Altered mental status: Plan: Possibly from hypoxemia vs. other infection vs. medications vs. some level of baseline memory issues. - For me on 11/29, she is AAOx3, but is insistent that her son is in the [place] with his and dog. She cannot be convinced that it is the TV. - Discuss with son today. (3) Hepatitis: Plan: Normal LFTs in 08/2021; on admission LFTs up to 220/210 with elevated bilirubin to 2.9. Consider DILI, hepatic congestion, infectious cause. - RUQ u/s - Monitor LFTs - Hold statin - Viral hepatitis panel (4) Hypoxia: Plan: Likely COPD. - Monitor (5) Permanent atrial fibrillation with RVR: Plan: HR presently normal. - Continue home beta-marilia - Continue home warfarin when INR returns to normal (presently 4.3) (6) Supratherapeutic INR: Plan: As above (7) Hypertension: Plan: BP today is 115/70. - Continue beta-marilia as above (8) Hyperlipidemia: Plan: - Hold statin for elevated LFTs Admission and Anticipated Discharge Date Admission Date: November 28, 2021 Subjective Doing well today. Breathing much easier. Reports no fevers/chills, chest pain, shortness of breath, abdominal pain, nausea, or vomiting. Physical Exam Constitutional: WD/WN, vitals as above Eyes: EOM intact bilaterally; no conjunctival abnormality ENMT: external ear and nose normal, oropharynx normal Neck: trachea midline, no thyromegaly normal visual inspection Respiratory: normal respiratory effort, lungs clear to auscultation no respiratory distress Cardiovascular: RRR, no murmur, no edema Gastrointestinal (Abdomen): Inspection/Auscultation: abdomen normal to inspection; abdomen not distended Musculoskeletal: no cyanosis or clubbing, extremities motor strength 5/5 Skin: no rashes, warm and dry Neurologic: moves all extremities and awake Psychiatric: Orientation: alert, oriented to person and cooperative Results & Data Results & Data ([facility]) Vital Signs (Past 12 Hours) Vital Signs Temp Pulse Resp BP Pulse Ox 11/29/21 10:58 36.5 C 79 18 114/68 99 11/29/21 07:27 36.5 C 69 19 148/83 H 100 11/29/21 07:08 72 18 95 11/29/21 04:11 36.4 C L 91 H 19 149/78 H 95 11/29/21 03:44 75 20 94 PG Care Time/CCT Total # of Minutes Spent Total Time Spent with Patient: Total time spent is greater than 50% in coordination of care (as documented) at patient's floor/unit and/or counseling patient: Coding Level of Care Code 12984 Subseq Hosp Care Lvl 3 Diagnoses Altered mental status R41.82 Hypoxia R09.02 COPD exacerbation J44.1 Permanent atrial fibrillation with RVR I48.21 Supratherapeutic INR R79.1 Hypertension I10 Hyperlipidemia E78.5 Hepatitis K75.9
[2021-11-29] MEDS ORDERED: FUROSEMIDE 40 MG/4 ML VIAL IV ONE (14:40)
[2021-11-29] MEDS: cefTRIAXone SODIUM 2,000 MG in DEXTROSE 5% 50 ML IV SCH (17:24)
[2021-11-29] MEDS: AZITHROMYCIN 500 MG in DEXTROSE 5% 250 ML IV SCH (18:15)
[2021-11-29] MEDS: MELATONIN 3 MG TAB PO SCH (21:33)
[2021-11-29] MEDS: LORazepam 0.5 MG TAB PO PRN (21:33)
--- NOTE | 2021-11-29 22:08 | Ultrasound Report ---
US abdomen limited CLINICAL HISTORY: Follow-up fatty liver. Previous cholecystectomy. COMPARISON: 09/27/2011 TECHNIQUE: Multiple grayscale and color images of the right upper quadrant of the abdomen. FINDINGS: Pancreas: The pancreas is within normal limits with no focal mass or peripancreatic fluid collection identified. Liver: The liver is homogeneous in echogenicity. No definite fatty infiltration as seen on the curren t study. There is no evidence for a focal mass. There is no intrahepatic biliary duct dilatation. Gallbladder: The gallbladder is surgically absent. Common Bile Duct: (CBD): It is normal in size measuring 4 mm. Inferior Vena Cava (IVC): The imaged IVC is patent. Right kidney: There is no evidence for hydronephrosis, calculus or gross renal mass. The kidney is n ormal in size. Measures 10.8 cm in greatest length. IMPRESSION: Status post cholecystectomy. No acute intra-abdominal abnormality. ACT 112: Negative or not required by law. Electronically signed by: Rizwan Rivera M.D. 11/29/2021 10:06 PM
[2021-11-30] MEDS ORDERED: MELATONIN 3 MG TAB PO STA (02:47)
[2021-11-30 07:17] LABS: Hematocrit (blood only) 48.9 % (37-47); Mean Corpuscular Hemoglobin 30.4 pg (25-34); Mean Corpuscular Hgb Conc 32.7 g/dL (32-36); Mean Corpuscular Volume 92.8 fL (80-100); Mean Platelet Volume 10.9 fL (7.4-10.4); Platelet Count 231 K/uL (130-400); RDW Coefficient of Variation 14.5 % (11.5-14.5); RDW Standard Deviation 48.8 fL (36.4-46.3); Red Blood Count 5.27 M/uL (4.2-5.4); White Blood Count 16.61 K/uL (4.8-10.8)
[2021-11-30] MEDS: METOPROLOL TARTRATE 50 MG TAB PO SCH ×2 (07:27→20:38)
[2021-11-30] MEDS: UMECLIDINIUM/VILANTEROL 62.5/25MCG 7 PUFFS/INHALER INH SCH (07:27)
[2021-11-30 07:34] LABS: INR 4.1 (0.9-1.1); Prothrombin Time 37.2 Seconds (9.0-12.0)
[2021-11-30 07:44] LABS: Albumin Globulin Ratio 1.6 (0.9-2); Albumin Level 4.1 gm/dl (3.4-5.0); BUN Creatinine Ratio 26.4 (10-20); Bilirubin,Total 1.8 mg/dl (0.2-1.0); Calcium 9.6 mg/dl (8.5-10.1); Est GFR (African American) 56.6 ml/min; Est GFR (Non-African American) 48.9 ml/min; Globulin 2.6 gm/dl (2.5-4.0); Magnesium 1.6 mg/dl (1.7-2.4); Phosphorus 2.8 mg/dl (2.5-4.9); Potassium 3.2 mmol/L (3.5-5.1); Total Protein 6.7 gm/dl (6.0-8.3)
[2021-11-30] MEDS ORDERED: predniSONE 20 MG TAB PO SCH (09:00)
--- NOTE | 2021-11-30 10:13 | Electrocardiogram Report ---
Test Reason : Blood Pressure : / mmHG Vent. Rate : 075 BPM Atrial Rate : 071 BPM P-R Int : 000 ms QRS Dur : 100 ms QT Int : 430 ms P-R-T Axes : 000 099 024 degrees QTc Int : 480 ms Atrial fibrillation Rightward axis Nonspecific ST and T wave abnormality Prolonged QT Abnormal ECG When compared with ECG of 29-NOV-2021 05:42, Nonspecific T wave abnormality, worse in Inferior leads Confirmed by Eleazar Salguero ([id number]) on 11/30/2021 10:13:27 AM Referred By: REFERRED SELF Confirmed By:Eleazar Salguero
--- NOTE | 2021-11-30 12:22 | Hospitalist Progress Note ---
Date of Service November 30, 2021 Assessment & Plan (1) COPD exacerbation: Plan: On admission. Presently breathing much more comfortably. - Continue steroids and abx -> Will reduce steroids tomorrow as I think she is having significant confusion from them. - Continue home Stiolto (or formulary equivalent) - Continue DuoNebs PRN (2) Altered mental status: Plan: Possibly from hypoxemia vs. other infection vs. medications vs. some level of baseline memory issues. - For me on 11/29, she was AAOx3, but was insistent that her son was in the [place] with his and dog. - Discussed with son on 11/29 who reports she is usually aware and completes her own ADLs. -> On 11/30, she speaks quickly and reports the overnight events which I suspect are based on the truth re: having overnight people frustrated by her attempts to get out of bed. She reports they had her fold towels, and she does in fact have a pile of folded towels on the chair beside her. (3) Hepatitis: Plan: Normal LFTs in 08/2021; on admission LFTs up to 220/210 with elevated bilirubin to 2.9. Consider DILI, hepatic congestion, infectious cause. - RUQ u/s on 11/29 showed she is s/p juanis and had no abnormalities. - Viral hepatitis panel pending - Hold statin - Monitor LFTs -> Improving today: Tbili/AST/ALT/ALKP: 1.8/91/140/86 (4) Hypoxia: Plan: Likely COPD. - Monitor (5) Permanent atrial fibrillation with RVR: Plan: HR presently normal. - Continue home beta-marilia - Continue home warfarin when INR returns to normal (presently 4.1) (6) Supratherapeutic INR: Plan: As above (7) Hypertension: Plan: BP today is 160/85. - Continue beta-marilia as above (8) Hyperlipidemia: Plan: - Hold statin for elevated LFTs Admission and Anticipated Discharge Date Admission Date: November 28, 2021 Subjective No major issues today. She had a tough night with room switch and issues like that. Reports no fevers/chills, chest pain, shortness of breath, abdominal pain, nausea, or vomiting. Physical Exam Constitutional: WD/WN, vitals as above Eyes: EOM intact bilaterally; no conjunctival abnormality ENMT: external ear and nose normal, oropharynx normal Neck: trachea midline, no thyromegaly normal visual inspection Respiratory: normal respiratory effort, lungs clear to auscultation no res piratory distress Cardiovascular: RRR, no murmur, no edema Gastrointestinal (Abdomen): Inspection/Auscultation: abdomen normal to inspection; abdomen not distended Musculoskeletal: no cyanosis or clubbing, extremities motor strength 5/5 Skin: no rashes, warm and dry Neurologic: moves all extremities and awake Psychiatric: Orientation: alert, oriented to person and cooperative Results & Data Results & Data ([facility]) Vital Signs (Past 12 Hours) Vital Signs Temp Pulse Resp BP BP Pulse Ox 11/30/21 11:13 36.3 C L 85 22 159/84 H 97 11/30/21 08:00 36.4 C L 81 18 152/8 H 96 11/30/21 04:00 36.4 C L 76 18 147/74 H 92 PG Care Time/CCT Total # of Minutes Spent Total Time Spent with Patient: Total time spent is greater than 50% in coordination of care (as documented) at patient's floor/unit and/or counseling patient: Coding Level of Care Code 63481 Subseq Hosp Care Lvl 3 Diagnoses COPD exacerbation J44.1 Altered mental status R41.82 Hepatitis K75.9 Hypoxia R09.02 Permanent atrial fibrillation with RVR I48.21 Supratherapeutic INR R79.1 Hypertension I10 Hyperlipidemia E78.5
[2021-11-30] MEDS: traMADol HCL 50 MG TABLET PO PRN (15:35)
[2021-11-30] MEDS: cefTRIAXone SODIUM 2,000 MG in DEXTROSE 5% 50 ML IV SCH (17:31)
[2021-11-30] MEDS: AZITHROMYCIN 500 MG in DEXTROSE 5% 250 ML IV SCH (17:56)
[2021-11-30] MEDS: LORazepam 0.5 MG TAB PO PRN (20:37)
[2021-11-30] MEDS: MELATONIN 3 MG TAB PO SCH (20:37)
[2021-12-01] MEDS: METOPROLOL TARTRATE 50 MG TAB PO SCH ×2 (07:47→20:33)
[2021-12-01] MEDS: UMECLIDINIUM/VILANTEROL 62.5/25MCG 7 PUFFS/INHALER INH SCH (07:48)
[2021-12-01] MEDS: predniSONE 20 MG TAB PO SCH (07:50)
[2021-12-01 08:37] LABS: Hematocrit (blood only) 49.5 % (37-47); Hemoglobin 16.6 g/dL (12.0-16.0); Mean Corpuscular Hemoglobin 30.9 pg (25-34); Mean Corpuscular Hgb Conc 33.5 g/dL (32-36); Mean Platelet Volume 9.8 fL (7.4-10.4); Platelet Count 206 K/uL (130-400); RDW Coefficient of Variation 14.5 % (11.5-14.5); RDW Standard Deviation 48.3 fL (36.4-46.3); Red Blood Count 5.38 M/uL (4.2-5.4)
[2021-12-01 08:48] LABS: INR 2.8 (0.9-1.1); Prothrombin Time 26.6 Seconds (9.0-12.0)
[2021-12-01] MEDS ORDERED: ROSUVASTATIN CALCIUM 10 MG TAB PO SCH (09:00)
[2021-12-01 09:02] LABS: Albumin Globulin Ratio 1.6 (0.9-2); BUN Creatinine Ratio 31.2 (10-20); Bilirubin,Total 1.5 mg/dl (0.2-1.0); Calcium 9.3 mg/dl (8.5-10.1); Est GFR (African American) 66.3 ml/min; Est GFR (Non-African American) 57.2 ml/min; Globulin 2.5 gm/dl (2.5-4.0); Magnesium 1.8 mg/dl (1.7-2.4); Phosphorus 3.1 mg/dl (2.5-4.9); Potassium 3.4 mmol/L (3.5-5.1); Total Protein 6.5 gm/dl (6.0-8.3)
--- NOTE | 2021-12-01 11:49 | Hospitalist Progress Note ---
Date of Service December 01, 2021 Assessment & Plan (1) COPD exacerbation: Plan: On admission. Presently breathing much more comfortably. - Continue steroids and abx -> Reduced prednisone to 20 mg as I think she was having significant confusion from them. - Continue home Stiolto (or formulary equivalent) - Continue DuoNebs PRN - No wheezing today. Likely continue prednisone 20 mg x 2-3 more days, then stop. (2) Raynauds phenomenon: Plan: Noted what seemed to be Raynauds syndrome on 11/30 when seeing the patient. Both hands were very blue and cool to the touch. By holding them for a few minutes, they became pinker and warmer. Patient states this happened to her mother and has happened to her for much of her life, but her son states this is new information for him. - No indication of other causative pathology such as autoimmune disease, vasculitis, cryoglobulinemia, etc. 1) Son will ask his aunt to see if there is corroborating evidence. 2) Will get TSH 3) Will add amlodipine 2.5 mg to start. BP appears high enough to tolerate this dose and can watch response. (3) Altered mental status: Plan: Possibly from hypoxemia vs. other infection vs. medications vs. some level of baseline memory issues. - For me on 11/29, she was AAOx3, but was insistent that her son was in the [place] with his and dog. - Discussed with son on 11/29 who reports she is usually aware and completes her own ADLs. -> On 12/01, she appears to be improving. Calmer, more oriented about present medical condition. (4) Hepatitis: Plan: Normal LFTs in 08/2021; on admission LFTs up to 220/210 with elevated bilirubin to 2.9. Consider DILI, hepatic congestion, infectious cause. - RUQ u/s on 11/29 showed she is s/p juanis and had no abnormalities. - Viral hepatitis panel shows no HBV or HCV. HAV still pending. - Hold statin - Monitor LFTs -> Improving today: Tbili/AST/ALT/ALKP: 1.5/61/113/82 (5) Hypoxia: Plan: Likely COPD. - Monitor (6) Permanent atrial fibrillation with RVR: Plan: HR presently normal. - Continue home beta-marilia - Continue home warfarin (7) Supratherapeutic INR: Plan: As above (8) Hypertension: Plan: BP today is 160/85. - Continue beta-marilia as above - Added amlodipine on 12/01. (9) Hyperlipidemia: Plan: - Hold statin for elevated LFTs Admission and Anticipated Discharge Date Admission Date: November 28, 2021 Subjective More clear today. Still not reporting that she's getting much sleep, but much calmer and seems more logical today. Reports no fevers/chills, chest pain, shortness of breath, abdominal pain, nausea, or vomiting. Physical Exam Constitutional: WD/WN, vitals as above Eyes: EOM intact bilaterally; no conjunctival abnormality ENMT: external ear and nose normal, oropharynx normal Neck: trachea midline, no thyromegaly normal visual inspection Respiratory: normal respiratory effort, lungs clear to auscultation no respiratory distress Auscultation: no wheezes Cardiovascular: RRR, no murmur, no edema Gastrointestinal (Abdomen): Inspection/Auscultation: abdomen normal to inspection; abdomen not distended Musculoskeletal: no cyanosis or clubbing, extremities motor strength 5/5 Skin: no rashes, warm and dry Neurologic: moves all extremities and awake Psychiatric: Orientation: alert, oriented to person and cooperative Results & Data Results & Data ([facility]) Vital Signs (Past 12 Hours) Vital Signs Temp Pulse Resp BP BP Pulse Ox 12/01/21 11:09 36.3 C L 70 18 136/79 90 12/01/21 07:42 36.4 C L 73 18 160/78 H 99 12/01/21 04:21 36.5 C 69 20 139/68 97 PG Care Time/CCT Total # of Minutes Spent Total Time Spent with Patient: Total time spent is greater than 50% in coordination of care (as documented) at patient's floor/unit and/or counseling patient: Coding Level of Care Code 87681 Subseq Hosp Care Lvl 3 Diagnoses COPD exacerbation J44.1 Altered mental status R41.82 Hepatitis K75.9 Hypoxia R09.02 Permanent atrial fibrillation with RVR I48.21 Supratherapeutic INR R79.1 Hypertension I10 Hyperlipidemia E78.5 Raynauds phenomenon I73.00
[2021-12-01] MEDS: amLODIPine BESYLATE 5 MG TAB PO SCH (12:21)
[2021-12-01] MEDS: WARFARIN SOD 4 MG TAB PO SCH (16:01)
[2021-12-01] MEDS: cefTRIAXone SODIUM 2,000 MG in DEXTROSE 5% 50 ML IV SCH (16:05)
[2021-12-01] MEDS: LORazepam 0.5 MG TAB PO PRN (20:32)
[2021-12-01] MEDS: MELATONIN 3 MG TAB PO SCH (20:32)
[2021-12-01] MEDS: traMADol HCL 50 MG TABLET PO PRN (20:39)
[2021-12-02 06:11] LABS: Hematocrit (blood only) 47.9 % (37-47); Hemoglobin 15.2 g/dL (12.0-16.0); Mean Corpuscular Hgb Conc 31.7 g/dL (32-36); Mean Corpuscular Volume 94.5 fL (80-100); Mean Platelet Volume 10.1 fL (7.4-10.4); Platelet Count 179 K/uL (130-400); RDW Coefficient of Variation 14.5 % (11.5-14.5); RDW Standard Deviation 49.7 fL (36.4-46.3); Red Blood Count 5.07 M/uL (4.2-5.4)
[2021-12-02 06:20] LABS: INR 2.3 (0.9-1.1); Prothrombin Time 21.9 Seconds (9.0-12.0)
[2021-12-02 06:34] LABS: BUN Creatinine Ratio 29.6 (10-20); Calcium 8.9 mg/dl (8.5-10.1); Creatinine Clr Calc Pharmacy 49.1 ml/min; Est GFR (African American) 62.3 ml/min; Est GFR (Non-African American) 53.7 ml/min; Magnesium 1.9 mg/dl (1.7-2.4); Potassium 3.2 mmol/L (3.5-5.1)
[2021-12-02 06:50] LABS: Thyroid Stimulating Hormone 4.737 uIu/ml (0.300-4.500)
[2021-12-02 08:20] LABS: T4 Free Thyroxine 0.88 ng/dl (0.61-1.60)
[2021-12-02] MEDS ORDERED: POTASSIUM CHLORIDE CRTAB 20 MEQ TABCR PO STA (09:33)
[2021-12-02] MEDS: amLODIPine BESYLATE 5 MG TAB PO SCH (09:45)
[2021-12-02] MEDS: predniSONE 20 MG TAB PO SCH (09:45)
[2021-12-02] MEDS: METOPROLOL TARTRATE 50 MG TAB PO SCH ×2 (09:45→19:30)
[2021-12-02] MEDS: UMECLIDINIUM/VILANTEROL 62.5/25MCG 7 PUFFS/INHALER INH SCH (09:46)
[2021-12-02] MEDS ORDERED: COUGH DROP (SUGAR FREE) LOZ 24 LOZ/1 BOX BUCCAL PRN (09:51)
[2021-12-02 10:56] LABS: Hepatitis A Antibody IgM NON-REACTIVE (NON-REACTIVE); Hepatitis B Core Antibody IgM NON-REACTIVE (NON-REACTIVE)
[2021-12-02] MEDS: WARFARIN SOD 4 MG TAB PO SCH (15:36)
--- NOTE | 2021-12-02 17:21 | Hospitalist Progress Note ---
Date of Service December 02, 2021 Assessment & Plan (1) COPD exacerbation: Plan: On admission. Presently breathing much more comfortably. - Continue abx - Continue home Stiolto (or formulary equivalent) - Continue DuoNebs PRN - No wheezing today. Will stop prednisone as she feels it is not helpful for her. No more wheezing. (2) Raynauds phenomenon: Plan: Noted what seemed to be Raynauds syndrome on 11/30 when seeing the patient. Both hands were very blue and cool to the touch. By holding them for a few minutes, they became pinker and warmer. Patient states this happened to her mother and has happened to her for much of her life, but her son states this is new information for him. - No indication of other causative pathology such as autoimmune disease, vasculitis, cryoglobulinemia, etc. - TSH high normal. - Added amlodipine 2.5 mg to start. BP appears high enough to tolerate this dose and can watch response. Hands good today. (3) Altered mental status: Plan: Possibly from hypoxemia vs. other infection vs. medications vs. some level of baseline memory issues. Metabolic encephalopathy. - For me on 11/29, she was AAOx3, but was insistent that her son was in the [place] with his and dog. - Discussed with son on 11/29 who reports she is usually aware and completes her own ADLs. -> On 12/02, she is at baseline. (4) Hepatitis: Plan: Normal LFTs in 08/2021; on admission LFTs up to 220/210 with elevated bilirubin to 2.9. Consider DILI, hepatic congestion, infectious cause. - RUQ u/s on 11/29 showed she is s/p juanis and had no abnormalities. - Viral hepatitis panel shows no HBV or HCV. HAV still pending. - Hold statin - Monitor LFTs -> Improving: Tbili/AST/ALT/ALKP: 1.5/61/113/82 (5) Hypoxia: Plan: Likely COPD. - Monitor (6) Permanent atrial fibrillation with RVR: Plan: HR presently normal. - Continue home beta-marilia - Continue home warfarin (7) Supratherapeutic INR: Plan: As above (8) Hypertension: Plan: BP today is 150/85. - Continue beta-marilia as above - Added amlodipine on 12/01. (9) Hyperlipidemia: Plan: - Hold statin for elevated LFTs Admission and Anticipated Discharge Date Admission Date: November 28, 2021 Subjective More clear today. Seen with her son in the room who reports she is back to herself. Reports no fevers/chills, chest pain, shortness of breath, abdominal pain, nausea, or vomiting. Physical Exam Constitutional: WD/WN, vitals as above Eyes: EOM intact bilaterally; no conjunctival abnormality ENMT: external ear and nose normal, oropharynx normal Neck: trachea midline, no thyromegaly normal visual inspection Respiratory: normal respiratory effort, lungs clear to auscultation no respiratory distress Auscultation: no wheezes Cardiovascular: RRR, no murmur, no edema Gastrointestinal (Abdomen): Inspection/Auscultation: abdomen normal to inspection; abdomen not distended Musculoskeletal: no cyanosis or clubbing, extremities motor strength 5/5 Skin: no rashes, warm and dry Neurologic: moves all extremities and awake Psychiatric: Orientation: alert, oriented to person and cooperative Results & Data Results & Data ([facility]) Vital Signs (Past 12 Hours) Vital Signs Temp Pulse Pulse Resp BP Pulse Ox 12/02/21 15:17 78 12/02/21 15:12 36.5 C 72 18 148/84 H 95 12/02/21 11:10 36.6 C 70 18 149/79 H 97 12/02/21 07:35 60 12/02/21 07:25 36.4 C L 65 18 165/75 H 97 PG Care Time/CCT Total # of Minutes Spent Total Time Spent with Patient: Total time spent is greater than 50% in coordination of care (as documented) at patient's floor/unit and/or counseling patient: Coding Level of Care Code 69726 Subseq Hosp Care Lvl 2 Diagnoses COPD exacerbation J44.1 Raynauds phenomenon I73.00 Altered mental status R41.82 Hepatitis K75.9 Hypoxia R09.02 Permanent atrial fibrillation with RVR I48.21 Supratherapeutic INR R79.1 Hypertension I10 Hyperlipidemia E78.5
[2021-12-02] MEDS: cefTRIAXone SODIUM 2,000 MG in DEXTROSE 5% 50 ML IV SCH (18:06)
[2021-12-02] MEDS: MELATONIN 3 MG TAB PO SCH (19:33)
[2021-12-02] MEDS: LORazepam 0.5 MG TAB PO PRN (19:33)
[2021-12-03 06:35] LABS: INR 2.1 (0.9-1.1); Prothrombin Time 20.2 Seconds (9.0-12.0)
[2021-12-03 06:39] LABS: Hemoglobin 16.1 g/dL (12.0-16.0); Mean Corpuscular Hemoglobin 30.4 pg (25-34); Mean Corpuscular Hgb Conc 32.2 g/dL (32-36); Mean Corpuscular Volume 94.3 fL (80-100); Mean Platelet Volume 10.7 fL (7.4-10.4); Platelet Count 184 K/uL (130-400); RDW Coefficient of Variation 14.3 % (11.5-14.5); RDW Standard Deviation 49.3 fL (36.4-46.3)
[2021-12-03 06:51] LABS: BUN Creatinine Ratio 27.7 (10-20); Calcium 9.1 mg/dl (8.5-10.1); Creatinine Clr Calc Pharmacy 51.4 ml/min; Est GFR (African American) 65.5 ml/min; Est GFR (Non-African American) 56.5 ml/min; Magnesium 1.9 mg/dl (1.7-2.4); Potassium 3.9 mmol/L (3.5-5.1)
[2021-12-03] MEDS: METOPROLOL TARTRATE 50 MG TAB PO SCH ×2 (07:34→20:07)
[2021-12-03] MEDS: amLODIPine BESYLATE 5 MG TAB PO SCH (07:34)
[2021-12-03] MEDS: UMECLIDINIUM/VILANTEROL 62.5/25MCG 7 PUFFS/INHALER INH SCH (07:35)
--- NOTE | 2021-12-03 15:04 | Hospitalist Progress Note ---
Date of Service December 03, 2021 Assessment & Plan (1) COPD exacerbation: Plan: On admission. Presently breathing much more comfortably. - Continue abx - Continue home Stiolto (or formulary equivalent) - Continue DuoNebs PRN - No wheezing today. Will stop prednisone as she feels it is not helpful for her. At baseline with breathing. Will need 3L at rest and exertion. (2) Raynauds phenomenon: Plan: Noted what seemed to be Raynauds syndrome on 11/30 when seeing the patient. Both hands were very blue and cool to the touch. By holding them for a few minutes, they became pinker and warmer. Patient states this happened to her mother and has happened to her for much of her life, but her son states this is new information for him. - No indication of other causative pathology such as autoimmune disease, vasculitis, cryoglobulinemia, etc. - TSH high normal. - Added amlodipine 2.5 mg to start. BP appears high enough to tolerate this dose and can watch response. -> No further episodes that I know of and hands are good today. (3) Altered mental status: Plan: Possibly from hypoxemia vs. other infection vs. medications vs. some level of baseline memory issues. Metabolic encephalopathy. - For me on 11/29, she was AAOx3, but was insistent that her son was in the [place] with his and dog. - Discussed with son on 11/29 who reports she is usually aware and completes her own ADLs. -> On 12/02, she is at baseline per her son. (4) Hepatitis: Plan: Normal LFTs in 08/2021; on admission LFTs up to 220/210 with elevated bilirubin to 2.9. Consider DILI, hepatic congestion, infectious cause. - RUQ u/s on 11/29 showed she is s/p juanis and had no abnormalities. - Viral hepatitis panel shows no HBV or HCV. HAV still pending. - Hold statin - Monitor LFTs -> Improving: Tbili/AST/ALT/ALKP: 1.5/61/113/82 (5) Hypoxia: Plan: Likely COPD. - Monitor (6) Permanent atrial fibrillation with RVR: Plan: HR presently normal. - Continue home beta-marilia - Continue home warfarin (INR 2.1) (7) Supratherapeutic INR: Plan: As above (8) Hypertension: Plan: BP today is 150/80. - Continue beta-marilia as above - Added amlodipine on 12/01. (9) Hyperlipidemia: Plan: - Hold statin for elevated LFTs Admission and Anticipated Discharge Date Admission Date: November 28, 2021 Subjective More clear today. Reports no fevers/chills, chest pain, shortness of breath, abd ominal pain, nausea, or vomiting. Physical Exam Constitutional: WD/WN, vitals as above Eyes: EOM intact bilaterally; no conjunctival abnormality ENMT: external ear and nose normal, oropharynx normal Neck: trachea midline, no thyromegaly normal visual inspection Respiratory: normal respiratory effort, lungs clear to auscultation no respiratory distress Auscultation: no wheezes Cardiovascular: RRR, no murmur, no edema Gastrointestinal (Abdomen): Inspection/Auscultation: abdomen normal to inspection; abdomen not distended Musculoskeletal: no cyanosis or clubbing, extremities motor strength 5/5 Skin: no rashes, warm and dry Neurologic: moves all extremities and awake Psychiatric: Orientation: alert, oriented to person and cooperative Results & Data Results & Data ([facility]) Vital Signs (Past 12 Hours) Vital Signs Temp Pulse Pulse Pulse Pulse Pulse Pulse 12/03/21 11:57 36.9 C 71 12/03/21 10:00 64 70 76 71 12/03/21 07:30 36.5 C 74 12/03/21 07:13 60 12/03/21 03:04 36.4 C L 70 Pulse Resp Resp Resp Resp Resp Resp 12/03/21 11:57 16 12/03/21 10:00 64 16 16 20 20 16 12/03/21 07:30 16 12/03/21 07:13 12/03/21 03:04 18 BP BP Pulse Ox Pulse Ox Pulse Ox Pulse Ox Pulse Ox 12/03/21 11:57 148/82 H 94 12/03/21 10:00 87 L 92 91 92 12/03/21 07:30 149/75 H 92 12/03/21 07:13 12/03/21 03:04 157/89 H 92 Pulse Ox 12/03/21 11:57 12/03/21 10:00 85 L 12/03/21 07:30 12/03/21 07:13 12/03/21 03:04 PG Care Time/CCT Total # of Minutes Spent Total Time Spent with Patient: Total time spent is greater than 50% in coordination of care (as documented) at patient's floor/unit and/or counseling patient: Coding Level of Care Code 41081 Subseq Hosp Care Lvl 3 Diagnoses COPD exacerbation J44.1 Raynauds phenomenon I73.00 Altered mental status R41.82 Hepatitis K75.9 Hypoxia R09.02 Permanent atrial fibrillation with RVR I48.21 Supratherapeutic INR R79.1 Hypertension I10 Hyperlipidemia E78.5
[2021-12-03] MEDS: WARFARIN SOD 4 MG TAB PO SCH (15:44)
[2021-12-03] MEDS: cefTRIAXone SODIUM 2,000 MG in DEXTROSE 5% 50 ML IV SCH (15:53)
[2021-12-03] MEDS: traMADol HCL 50 MG TABLET PO PRN (20:05)
[2021-12-03] MEDS: MELATONIN 3 MG TAB PO SCH (20:07)
[2021-12-04] MEDS: UMECLIDINIUM/VILANTEROL 62.5/25MCG 7 PUFFS/INHALER INH SCH (07:52)
[2021-12-04] MEDS: amLODIPine BESYLATE 5 MG TAB PO SCH (07:53)
[2021-12-04] MEDS: METOPROLOL TARTRATE 50 MG TAB PO SCH (07:56)
--- NOTE | 2021-12-04 11:26 | Discharge Summary ---
Date of Service December 04, 2021 Admission HPI Per Admitting Provider Mrs. Castro is an 81 year old female with a history of Permanent Atrial Fibrillation (currently with elevated V rate), COPD/Emphysema, Hypertension, Hyperlipidemia, Anxiety, Osteoarthritis, and CKD who presented acutely to [facility] ER today via ambulance with altered mental status. Apparently, she was found earlier today walking around in the yard mumbling to herself. She states that she was looking for her phone that her kicked under their bed. She went to her neighbor's house to borrow her phone -- and her neighbor realized that she was confused and not her usual self. Neighbor contacted her son Edouard who lives in [place]. He apparently called 911 and the ambulance came for her. Patient does not have any history of underlying dementia, and her son confirms that she lives independently and is able to do all of her usual activities of daily living and IADLs when she is at baseline without difficulty. However, 1 week ago Edouard spoke to his mother over the phone and she told him she saw his "father lying in bed next to me" (her is ). her son the admit that perhaps her oxygen levels were low because of her underlying diagnosis of COPD/emphysema. Edouard came over to visit her and noticed that her finger tips and lips appear to be slightly blue. He told her to get out her inhalers but she seemed confused when it came to using them. Patient does feel better since she arrived to the emergency room. She received a dose of Rocephin, azithromycin, steroids, and got a nebulizer treatment. Patient does admit to some mild exertional dyspnea recently (over the past 4 or 5 days she estimats) but has not had any significant cough or sputum production. She denies any fevers, chills, headache, stiff neck, recent diarrhea, nausea, vomiting, or any chest discomfort. She has not had any orthopnea or PND. She does not weigh herself routinely -- so she is uncertain if she has had any recent weight changes. She does admit to leg edema from time to time, and she is edematous now. Patient specifically denies any exertional chest pain, heaviness, tightness, pressure, or discomfort. She has not had any neck, jaw, back, or arm pain. She denies any symptoms attributable to her atrial fibrillation despite elevated heart rate. Edouard lives in [place], [place] if his mother needs supervision/care, he would prefer she come live with him and his rather than be placed in a facility. Principal Diagnosis COPD exacerbation Oxygen need Possible Raynaud's phenomenon Discharge Exam Constitutional WD/WN, vitals as above Eyes EOM intact bilaterally; no conjunctival abnormality ENMT external ear and nose normal, oropharynx normal Neck trachea midline, no thyromegaly normal visual inspection Respiratory normal respiratory effort, lungs clear to auscultation no respiratory distress Auscultation: no wheezes Cardiovascular RRR, no murmur, no edema Gastrointestinal (Abdomen) Inspection/Auscultation: abdomen normal to inspection; abdomen not distended Musculoskeletal no cyanosis or clubbing, extremities motor strength 5/5 Skin no rashes, warm and dry Neurologic moves all extremities and awake Psychiatric Orientation: alert, oriented to person and cooperative Discharge Data Allergies Allergy/AdvReac Type Severity Reaction Status Date / Time prednisone AdvReac Mild Confusion, Verified 12/02/21 17:17 agitation Consultations 11/28/21 15:14 ED Decision to Admit Stat Ordered Studies 11/28/21 14:33 CT head/brain wo con Stat 11/28/21 19:34 CT chest diagnostic wo con Routine 11/29/21 14:40 US abdomen limited Routine Hospital Course (1) COPD exacerbation: On admission. Presently breathing much more comfortably. - Continue abx - Continue home Stiolto (or formulary equivalent) - Continue DuoNebs PRN - No wheezing today. Will stop prednisone as she feels it is not helpful for her. At baseline with breathing. Will need 3L at rest and exertion. (2) Raynauds phenomenon: Noted what seemed to be Raynauds syndrome on 11/30 when seeing the patient. Both hands were very blue and cool to the touch. By holding them for a few minutes, they became pinker and warmer. Patient states this happened to her mother and has happened to her for much of her life, but her son states this is new information for him. - No indication of other causative pathology such as autoimmune disease, vasculitis, cryoglobulinemia, etc. - TSH high normal. - Added amlodipine 2.5 mg to start. BP appears high enough to tolerate this dose and can watch response. -> No further episodes that I know of and hands are good today. (3) Altered mental status: Possibly from hypoxemia vs. other infection vs. medications vs. some level of baseline memory issues. Metabolic encephalopathy. - For me on 11/29, she was AAOx3, but was insistent that her son was in the [place] with his and dog. - Discussed with son on 11/29 who reports she is usually aware and completes her own ADLs. -> On 12/02, she is at baseline per her son. (4) Hepatitis: Normal LFTs in 08/2021; on admission LFTs up to 220/210 with elevated bilirubin to 2.9. Consider DILI, hepatic congestion, infectious cause. - RUQ u/s on 11/29 showed she is s/p juanis and had no abnormalities. - Viral hepatitis panel shows no HBV or HCV. HAV still pending. - Hold statin - Monitor LFTs -> Improving: Tbili/AST/ALT/ALKP: 1.5/61/113/82 (5) Hypoxia: Likely COPD. - Monitor (6) Permanent atrial fibrillation with RVR: HR presently normal. - Continue home beta-marilia - Continue home warfarin (INR 2.1) (7) Supratherapeutic INR: As above (8) Hypertension: BP today is 150/80. - Continue beta-marilia as above - Added amlodipine on 12/01. (9) Hyperlipidemia: - Hold statin for elevated LFTs Total Time Total Time Spent Total Time Spent (In Minutes): 35 Discharge Plan Discharge Items Patient Disposition: Home - Home Health Services Reason For Visit: AMS, HYPOXIA Discharge Diagnosis: Confusion, low oxygen levels Activity: Resume your previous activity Non-emergency contact: Primary Care Provider Call non-emergency contact if: your symptoms worsen Follow-up/Referrals: Neeru Cummings MD [Primary Care Provider] - 12/10/21 2:00 pm Diet: Heart Healthy Addtl Attending Provider Instructions: Ms. Castro, You were admitted to the hospital with low oxygen levels and confusion which were probably related. We treated you with some steroids to help your breathing, and are arranging home oxygen for you. Please use the 3L of home oxygen all the time, morning, night, and with exertion. While you were here, we noticed that your hands got cold and blue. This is possibly from something called Raynaud's syndrome. We started you on a gentle blood pressure medication which can help reduce the risk of this. By discharge, it seems to be much improved. Pending Studies at Discharge: No Stand-Alone Forms: My [facility] NOW! [employer], Smoking Cessation Medications and DC Order Prescriptions: New amlodipine [Norvasc] 5 mg Tablet 2.5 mg PO QAM Qty: 30 RF: 0 Continued albuterol sulfate [ProAir HFA] 90 mcg/actuation HFA aerosol inhaler 2 puff inhalation Q6H PRN (Reason: shortness of breath or wheezing) Qty: 6.7 RF: 3 warfarin 5 mg tablet 5 mg PO UD Qty: 100 RF: 3 tramadol 50 mg tablet 50 mg PO QID PRN (Reason: pain) Qty: 120 RF: 0 lorazepam 0.5 mg tablet 0.5 - 1 mg PO HS PRN (Reason: anxiety) RF: 0 furosemide 20 mg tablet 20 mg PO DAILY PRN (Reason: excess fluid) RF: 0 rosuvastatin 20 mg tablet 10 mg PO 3XWK RF: 0 Stiolto Respimat 2.5-2.5 mcg/actuation mist 2 puff inhalation QDL RF: 0 Changed metoprolol tartrate 50 mg tablet 50 mg PO AMPM Qty: 0 RF: 0 Discharge Orders: Discharge Order (Routine); Ordered 12/04/21 Ordered By: Jose Galindo Admission Data Admit Date/Time: 11/28/21 15:52 Attending Provider: Jose Galindo Admit Provider: Tab Vazquez Primary Care Provider: Neeru Cummings Other Providers: Jose Galindo Coding Level of Care Code D/C DAY MANAGEMENT >30 MINS Diagnoses COPD exacerbation J44.1 Raynauds phenomenon I73.00 Altered mental status R41.82 Hepatitis K75.9 Hypoxia R09.02 Permanent atrial fibrillation with RVR I48.21 Supratherapeutic INR R79.1 Hypertension I10 Hyperlipidemia E78.5
[2021-12-04] MEDS ORDERED: NYSTATIN SUSP 500,000 U/5 ML UDC PO SCH (13:00)
== END 2021-12-04 14:30 | disposition home health service (06) | DRG 190 ==
LOC: ED 13:03 → EDINP 15:52 → SUATTDRO 15:52 → 2N 19:34